=== PATIENT | male | born 1975 | race Caucasian/White ===

== ENCOUNTER 2022-05-31 17:06 | Emergency (ER) | payer SELFPAY ==
[2022-05-31 17:18] VITALS: BP 144/86; PULSE 78; RESP 16; TEMP 35.8; O2SAT 99
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
--- NOTE | 2022-05-31 17:51 | PC.NURSE ---
Report called to script writerPaola LIN, at [facility] for transfer.
== END 2022-05-31 17:55 | disposition short-term general hospital (02) ==
PROVIDERS: Emergency Provider Nurse Practitioner Family
DX: S09.90XA Unspecified injury of head, initial encounter (principal); X58.XXXA Exposure to other specified factors, initial encounter
CPT/HCPCS: 99203; G0463

== ENCOUNTER 2022-05-31 18:11 | Emergency (ER) | payer SELFPAY ==
[2022-05-31] VITALS (14 sets, daily range): BP systolic 132–147; BP diastolic 87–97; PULSE 64–76; RESP 16; TEMP 36.5; O2SAT 94–98
--- NOTE | ~2022-05-31 | CT_ITS ---
EXAMINATION: CT facial & cervical spine wo DATE: 05/31/2022 19:18 INDICATION: facial injury TECHNIQUE: Computed tomography (CT) of the maxillofacial region and cervical spine was performed with out intravenous contrast. Automated exposure control and iterative reconstruction technique were empl oyed. The dose-length product was 342.06 mGy-cm. COMPARISON: None FINDINGS: CERVICAL: Vertebral Body Alignment: Intact. Craniocervical and atlantoaxial alignment: Mild degenerative change. Alignment intact. Osseous structures/fracture: No evidence of a lytic or blastic process in the visualized spine. No e vidence of acute fracture. Cervical soft tissues: The paraspinal soft tissues planes are maintained. Degenerative changes: Severe degenerative disc disease at C3-4 and C4-5. Severe multilevel bilateral neural foraminal narrowing. Moderate central canal narrowing at C4-5. FACE: Soft Tissues: Frontal orbital and possibly left zygomatic soft tissue swelling. Facial bones: Comminuted mildly depressed nasal bone fractures. Comminuted mildly displaced fracture s of the anterior and lateral left maxillary pro, with extension into the anterior portion of the o rbital floor and involvement of the left infraorbital canal, which still appears to be grossly patent . No herniation of orbital contents. Nondisplaced left zygomatic arch fracture. No lytic or blastic p rocess. Eyes: The globes are intact. The soft tissue planes of the orbits are maintained. Paranasal Sinuses: Hemorrhage and retention cysts or polyps in the left maxillary sinus. Foreign Bodies: No radiopaque foreign bodies. Other Findings: None. IMPRESSION: No acute fracture or traumatic malalignment in the cervical spine. Mildly displaced and comminuted fractures of the anterior and lateral maxillary sinus pro, with ext ension of fracture lines to the infraorbital canal. Nondisplaced left zygomatic arch fracture. Reviewed, dictated and finalized at location K. IMPRESSION: No acute fracture or traumatic malalignment in the cervical spine. Mildly displaced and comminuted fractures of the anterior and lateral maxillary sinus pro, with extension of fracture lines to the infraorbital canal. Nondi splaced left zygomatic arch fracture.
--- NOTE | ~2022-05-31 | CT_ITS ---
EXAMINATION: CT brain wo con DATE: 05/31/2022 19:18 INDICATION: head injury . TECHNIQUE: Computed tomography (CT) of the head was performed without intravenous contrast. The mA wa s adjusted according to patient size. Iterative reconstruction technique was employed. The dose-lengt h product was 605.33 mGy-cm. COMPARISON: None FINDINGS: No acute intracranial hemorrhage or extra-axial fluid collection. No hydrocephalus, mass, or herniation. No acute ischemic infarct. Unremarkable dural venous sinus attenuation. No acute osseous abnormality. Minimal left maxillary mucosal thickening, otherwise the aerated spaces are clear. IMPRESSION: No acute intracranial process. Reviewed, dictated and finalized at location K.
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
== END 2022-05-31 20:56 | disposition home or self-care (01) ==
PROVIDERS: Emergency Provider Emergency Medicine
DX: S02.40FA Zygomatic fracture, left side, initial encounter for closed fracture (principal); S02.40DA Maxillary fracture, left side, initial encounter for closed fracture; Y04.2XXA Assault by strike against or bumped into by another person, initial encounter
CPT/HCPCS: 70450; 70486; 72125; 99284